=== PATIENT | female | born 1990 | race African-American/Black ===

== ENCOUNTER 2020-05-08 08:56 | Inpatient (IN) | payer BC, OTHER ==
[2020-05-08] MEDS ORDERED: PANTOPRAZOLE SODIUM 40 MG VIAL IVPUSH ONE (09:32)
[2020-05-08] MEDS ORDERED: ONDANSETRON 4 MG/2 ML VIAL IVPUSH ONE (09:32)
[2020-05-08] MEDS ORDERED: MAG HYDROX/AL HYDROX/SIMETH 30 ML UNIT-DOSE CUP PO ONE (09:32)
--- NOTE | 2020-05-08 09:36 | PDOC ---
History of Present Illness - General Chief Complaint: Pain Stated Complaint: LWR ABD PAIN Time Seen by Provider: 05/08/20 09:18 History Source: Patient Exam Limitations: No Limitations - History of Present Illness Initial Comments: 05/08/20 09:33 29-year-old female no past medical history surgical history of gastric sleeve 3 years ago presented to the ED with 2 days of lower abdominal pain. Patient states that the pain is associated with nausea without vomiting. Patient states that she feels the pain is gassy diffuse and intermittent. Patient also is complaining of constipation but was able to have a bowel movement after using a laxative. Pt otherwise denies: fevers, chills, syncope, lightheadedness, dizziness, headaches, neck pain, chest pain, shortness of breath, palpitations, back pain, vomiting, diarrhea. Past History - Medical History Allergies/Adverse Reactions: Allergies Allergy/AdvReac Type Severity Reaction Status Date / Time codeine Allergy Verified 05/08/20 09:08 Home Medications: Ambulatory Orders NK [No Known Home Medication] 05/08/20 - Reproductive History Is Patient Now?: No - Psycho-Social/Smoking History Smoking History: Never smoked - Substance Abuse Hx (Audit-C & DAST Scrn) How often the patient has a drink containing alcohol: Never Score: In Men: 4 or > Positive; In Women: 3 or > Positive: 0 Screen Result (Pos requires Nsg. Audit-10AR): Negative *Physical Exam - Vital Signs Last Vital Signs Temp Pulse Resp BP Pulse Ox 98.5 F 85 15 101/49 L 100 05/08/20 09:08 05/08/20 09:08 05/08/20 09:08 05/08/20 09:08 05/08/20 09:08 - Physical Exam 05/08/20 09:34 Gen: AAOx 3, no acute distress, comfortable, no signs of respiratory distress HENT: atraumatic, normocephalic with no laceration or contusion. Nasal mucosa without erythema. Oropharynx without erythema or exudates. Mucous membranes moist. EYES: PERRL, EOM intact, conjunctiva pink NECK: supple; trachea midline; no JVD, no lymphadenopathy, or thyromegaly CV: RRR no murmurs, gallops, or rubs. CHEST: CTA b/l no wheezing, rales or rhonchi ABD: +BS/ND. mildly TTP throughout; soft, no rebound, no guarding EXTREMITY: no cyanosis or erythema. 2+ dorsalis pedis, posterior tibial, and radial pulse. No pedal edema; no calf swelling or tenderness SKIN: no rash, warm and dry, no diaphoresis HEME: no purpura or ecchymosis NEURO: normal speech, CN II-XII intact, sensation intact, normal gait, no cerebellar deficits MS: 5/5 strength in all extremities, FROM intact in all extremities. ED Treatment Course - LABORATORY CBC & Chemistry Diagram: 05/08/20 10:08 05/08/20 10:08 Medical Decision Making - Medical Decision Making 05/08/20 09:35 29-year-old female diffuse lower abdominal pain Vital signs stable Will obtain labs and give Maalox Zofran and pantoprazole Will reassess based on results Patient's labs significant for hemoglobin of 7.1 and hematocrit of 23.4 will transfuse 2 units as well as obtain ferritin TIBC B6 B12 and folate levels. Rest of labs noncontributory UA negative Patient complaining of persistent abdominal pain will order 2 mg of morphine, patient states that her reaction to codeine previously was only mild warmth and itching which is a normal side effect of the medicine hence morphine should be tolerated Patient to be admitted to medicine for further management and care Pt admitted to medicine pending rest of labs, EKG and Ct abdomen and pelvis. Discharge - Discharge Information Problems reviewed: Yes Clinical Impression/Diagnosis: Anemia Qualifiers: Anemia type: unspecified type Qualified Code(s): D64.9 - Anemia, unspecified Abdominal pain Qualifiers: Abdominal location: generalized Qualified Code(s): R10.84 - Generalized abdominal pain Condition: Stable - Admission Yes - Follow up/Referral - Patient Discharge Instructions - Post Discharge Activity
[2020-05-08] MEDS ORDERED: PANTOPRAZOLE SODIUM 40 MG/100 ML BAG IVPB ONE (10:01)
[2020-05-08] MEDS ORDERED: MAG HYDROX/AL HYDROX/SIMETH 30 ML UNIT-DOSE CUP ONE (10:02)
[2020-05-08 10:48] LABS: BASO % 0.6 % (0-2.0); EOS % 0.7 % (0-4.5); HEMATOCRIT 23.4 % (32.4-45.2); HEMOGLOBIN 7.1 GM/dL (10.7-15.3); MCHC 30.5 g/dl (32.0-36.0); MEAN CELL VOLUME 63.6 fl (80-96); MONO % 6.3 % (3.8-10.2); NEUT % 63.4 % (42.8-82.8); PLATELET COUNT 316 K/MM3 (134-434); RBC 3.67 M/mm3 (3.60-5.2); RDW 17.5 % (11.6-15.6); WHITE BLOOD COUNT 4.1 K/mm3 (4.0-10.0)
[2020-05-08 10:51] LABS: INR 1.17 (0.83-1.09); PROTHROMBIN TIME (PATIENT) 13.8 SEC (9.7-13.0)
[2020-05-08 10:57] LABS: MCH 19.4 pg (25.7-33.7)
[2020-05-08 11:12] LABS: ALBUMIN 3.3 g/dl (3.4-5.0); ALK PHOS 54 U/L (45-117); ANION GAP 4 MMOL/L (8-16); BILIRUBIN,TOTAL 0.2 mg/dL (0.2-1); BLOOD UREA NITROGEN 5.5 mg/dL (7-18); CALCIUM 8.5 mg/dL (8.5-10.1); CHLORIDE 108 mmol/L (98-107); CO2 29 mmol/L (21-32); CREATININE 0.7 mg/dL (0.55-1.3); GLUCOSE,RANDOM 79 mg/dL (74-106); LIPASE 94 U/L (73-393); POTASSIUM 4.7 mmol/L (3.5-5.1); SGOT/AST 20 U/L (15-37); SGPT/ALT 19 U/L (13-61); SODIUM 140 mmol/L (136-145); TOT PROT 6.7 g/dl (6.4-8.2)
[2020-05-08] MEDS ORDERED: morphine CARPU-JECT 2 MG/1 ML DISP.SYRIN IVPUSH ONE (11:28)
[2020-05-08 11:55] LABS: URINE APPEARANCE CLEAR; URINE BILIRUBIN NEGATIVE (NEGATIVE); URINE COLOR YELLOW; URINE GLUCOSE (UA) NEGATIVE (NEGATIVE); URINE KETONE NEGATIVE (NEGATIVE); URINE LEUK ESTERASE NEGATIVE (NEGATIVE); URINE NITRITE NEGATIVE (NEGATIVE); URINE PROTEIN NEGATIVE (NEGATIVE); URINE UROBILINOGEN 0.2 mg/dL (0.2-1.0)
[2020-05-08] MEDS ORDERED: MORPHINE SULFATE 2 MG/ML VIAL ONE (12:22)
--- NOTE | 2020-05-08 12:25 | HP ---
CHIEF COMPLAINT: abdominal pain PCP: HISTORY OF PRESENT ILLNESS: Pt is a 29 y/o female with hx of anemia (not on iron supplementation) and gastric sleeve (3 years ago) who presents with 2 days of lower abdominal pain and constipation. She describes the pain as gassy, and it was relieved after taking Miralax and having a bowel movement. She denies fatigue, fever, chills, chest pain, palpitations, shortness of breath, nausea, vomiting, or diarrhea. During routine lab draw, her Hb was found to be 7.1. Her last LMP was 2 weeks ago and was normal. ER course was notable for: (1) Hb 7.1 (2) Maalox, pantoprazole (3) CT abdomen PAST MEDICAL HISTORY: anemia PAST SURGICAL HISTORY: gastric sleeve Social History: Smoking: denies Alcohol: denies Drugs: denies Allergies codeine Allergy (Verified 05/08/20 09:08) HOME MEDICATIONS: Home Medications Medication Instructions Recorded NK [No Known Home Medication] 05/08/20 REVIEW OF SYSTEMS see HPI PHYSICAL EXAMINATION Vital Signs - 24 hr 05/08/20 09:08 Temperature 98.5 F Pulse Rate 85 Respiratory 15 Rate Blood Pressure 101/49 L O2 Sat by Pulse 100 Oximetry (%) GENERAL: A&Ox3, in no acute distress. HEAD: Normal with no signs of trauma. EYES: PERRL, EOMI, pale conjunctiva. EARS, NOSE, THROAT: Ears normal, nares patent, moist mucous membranes. NECK: Normal range of motion. LUNGS: CTAB, no wheezes or crackles. HEART: RRR, no murmur. ABDOMEN: Soft, not distended, normoactive bowel sounds, guarding LLQ. MUSCULOSKELETAL: Normal range of motion at all joints. UPPER EXTREMITIES: Warm, well-perfused. No peripheral edema. LOWER EXTREMITIES: Warm, well-perfused. No peripheral edema. NEUROLOGICAL: Cranial nerves II-XII grossly intact. Normal speech. PSYCHIATRIC: Cooperative. Good eye contact. Appropriate mood and affect. SKIN: Warm, dry, normal turgor. RECTAL: External hemorrhoid @ 11 o' clock position, no internal hemorrhoids or masses noted, small amount light brown stool on glove Laboratory Results - last 24 hr 05/08/20 05/08/20 05/08/20 10:08 10:08 10:08 WBC 4.1 RBC 3.67 Hgb 7.1 L Hct 23.4 L MCV 63.6 L MCH 19.4 L MCHC 30.5 L RDW 17.5 H Plt Count 316 MPV 9.0 Absolute Neuts (auto) 2.6 Neutrophils % 63.4 Lymphocytes % 29.0 Monocytes % 6.3 Eosinophils % 0.7 Basophils % 0.6 Nucleated RBC % 0 PT with INR 13.80 H INR 1.17 H Sodium 140 Potassium 4.7 Chloride 108 H Carbon Dioxide 29 Anion Gap 4 L BUN 5.5 L Creatinine 0.7 Est GFR (CKD-EPI)AfAm 133.81 Est GFR (CKD-EPI)NonAf 115.45 Random Glucose 79 Calcium 8.5 Total Bilirubin 0.2 AST 20 ALT 19 Alkaline Phosphatase 54 Total Protein 6.7 Albumin 3.3 L Lipase 94 Beta HCG, Quant < 1.0 Urine Color Urine Appearance Urine pH Ur Specific [place] Urine Protein Urine Glucose (UA) Urine Ketones Urine Blood Urine Nitrite Urine Bilirubin Urine Urobilinogen Ur Leukocyte Esterase Crossmatch 05/08/20 05/08/20 10:55 11:33 WBC RBC Hgb Hct MCV MCH MCHC RDW Plt Count MPV Absolute Neuts (auto) Neutrophils % Lymphocytes % Monocytes % Eosinophils % Basophils % Nucleated RBC % PT with INR INR Sodium Potassium Chloride Carbon Dioxide Anion Gap BUN Creatinine Est GFR (CKD-EPI)AfAm Est GFR (CKD-EPI)NonAf Random Glucose Calcium Total Bilirubin AST ALT Alkaline Phosphatase Total Protein Albumin Lipase Beta HCG, Quant Urine Color Yellow Urine Appearance Clear Urine pH 8.0 Ur Specific [place] 1.012 Urine Protein Negative Urine Glucose (UA) Negative Urine Ketones Negative Urine Blood Negative Urine Nitrite Negative Urine Bilirubin Negative Urine Urobilinogen 0.2 Ur Leukocyte Esterase Negative Crossmatch See Detail CT abdomen A 4.4 x 4 cm right adnexal dermoid cyst is noted. 3 x 2 cm involuting left ovarian follicle/cyst. A 2.3 x 1.7 cm fluid structure is noted within the right paramedian aspect of the upper abdomen adjacent to the inferior border of the pancreatic head - representing a possible exophytic pancreatic cyst versus incidental visualization of a fluid-filled bowel loop. Correlation with nonemergent contrast enhanced MRI or follow-up CT with intravenous and oral contrast is suggested. ASSESSMENT/PLAN: Pt is a 29 y/o female with hx of anemia (not on iron supplementation) and gastric sleeve (3 years ago) who presents with 2 days of lower abdominal pain and constipation. She was found to have a Hb of 7.1. She is being admitted for microcytic anemia. 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 - New Patient This patient is new to me today: Yes Date on this admission: 05/08/20 - Critical Care Critical Care patient: No ATTENDING PHYSICIAN STATEMENT I saw and evaluated the patient. I reviewed the resident's note and discussed the case with the resident. I agree with the resident's findings and plan as documented. SUBJECTIVE: OBJECTIVE: ASSESSMENT AND PLAN:
--- NOTE | 2020-05-08 14:36 | CONSULT ---
Consultation: REQUESTING PROVIDER: Dr. Frank CONSULT REQUEST: We have been asked to medically evaluate this patient for anemia. HISTORY OF PRESENT ILLNESS: Patient is a 29 year old female with past medical history of iron deficiency anemia and s/p gastric sleeve, presented to the ED due to abdominal pain for 3 days. Patient reported LLQ pain, constant, sharp, with no aggravating or alleviating symptoms. At the ED, abdominal CT scan was done which revealed right adnexal dermoid cyst, involuting left ovarian follicle/cyst. CBC revealed Hgb of 7.1, MCV 63. Patient denies any fevers, chills, headache, dizziness, chest pain, shortness of breath, nausea, vomiting, diarrhea, urinary symptoms, bloody stoo ls. LMP Apr 24-, uses 2-3 ppd, no dysmenorrhea. No recent illness or sick contacts. We were consulted for further evaluation of anemia. Patient has medical records with her, latest blood work done in may 2019, revealed H/H 9.3/78.3, Iron 34, TSAT 11%. Patient was started on PO iron but could not tolerate the pill. PMHx: anemia PSHx:gastric sleeve SHx: denies smoking,drinking, illicit drug use Allergies: codeine FHx: no hx of blood disorders or cancer in the family REVIEW OF SYSTEMS: CONSTITUTIONAL: Absent: fever, chills, diaphoresis, generalized weakness, malaise, loss of appetite, weight change HEENT: Absent: rhinorrhea, nasal congestion, throat pain, throat swelling, difficulty swallowing, mouth swelling, ear pain, eye pain, visual changes CARDIOVASCULAR: Absent: chest pain, syncope, palpitations, irregular heart rate, lightheadedness, peripheral edema RESPIRATORY: Absent: cough, shortness of breath, dyspnea with exertion, orthopnea, wheezing, stridor, hemoptysis GASTROINTESTINAL:abdominal pain Absent: abdominal distension, nausea, vomiting, diarrhea, constipation, melena, hematochezia GENITOURINARY: Absent: dysuria, frequency, urgency, hesitancy, hematuria, flank pain, genital pain MUSCULOSKELETAL: Absent: myalgia, arthralgia, joint swelling, back pain, neck pain SKIN: Absent: rash, itching, pallor HEMATOLOGIC/IMMUNOLOGIC: Absent: easy bleeding, easy bruising, lymphadenopathy, frequent infections ENDOCRINE: Absent: unexplained weight gain, unexplained weight loss, heat intolerance, cold intolerance NEUROLOGIC: Absent: headache, focal weakness or paresthesias, dizziness, unsteady gait, seizure, mental status changes, bladder or bowel incontinence PSYCHIATRIC: Absent: anxiety, depression, suicidal or homicidal ideation, hallucinations. PHYSICAL EXAMINATION Vital Signs - 24 hr 05/08/20 05/08/20 09:08 13:06 Temperature 98.5 F 98.6 F Pulse Rate 85 Pulse Rate [ 72 Left] Respiratory 15 Rate Blood Pressure 101/49 L Blood Pressure 95/46 L [Left] O2 Sat by Pulse 100 99 Oximetry (%) GENERAL: Awake, alert, and fully oriented, in no acute distress. HEAD: Normal with no signs of trauma. EYES: PERRLA, EOMI, sclera anicteric, conjunctiva clear. EARS, NOSE, THROAT: Moist mucous membranes. NECK: Normal range of motion, supple LUNGS: Breath sounds equal, clear to auscultation bilaterally. HEART: Regular rate and rhythm, normal S1 and S2 BREAST: symmetrical, no skin changes, no nipple discharge, no masses, no axillary lymphadenopathy ABDOMEN: Soft, +LLQ tenderness, not distended, normoactive bowel sounds. LOWER EXTREMITIES: 2+ pulses, warm, well-perfused. No peripheral edema. NEUROLOGICAL: Cranial nerves II-XII intact. Normal speech. Normal gait. PSYCHIATRIC: Cooperative. Good eye contact. Appropriate mood and affect. SKIN: Warm, dry, normal turgor Laboratory Results - last 24 hr 05/08/20 05/08/20 05/08/20 10:08 10:08 10:08 WBC 4.1 RBC 3.67 Hgb 7.1 L Hct 23.4 L MCV 63.6 L MCH 19.4 L MCHC 30.5 L RDW 17.5 H Plt Count 316 MPV 9.0 Absolute Neuts (auto) 2.6 Neutrophils % 63.4 Lymphocytes % 29.0 Monocytes % 6.3 Eosinophils % 0.7 Basophils % 0.6 Nucleated RBC % 0 PT with INR 13.80 H INR 1.17 H Sodium 140 Potassium 4.7 Chloride 108 H Carbon Dioxide 29 Anion Gap 4 L BUN 5.5 L Creatinine 0.7 Est GFR (CKD-EPI)AfAm 133.81 Est GFR (CKD-EPI)NonAf 115.45 Random Glucose 79 Calcium 8.5 Total Bilirubin 0.2 AST 20 ALT 19 Alkaline Phosphatase 54 Total Protein 6.7 Albumin 3.3 L Lipase 94 Beta HCG, Quant < 1.0 Urine Color Urine Appearance Urine pH Ur Specific [place] Urine Protein Urine Glucose (UA) Urine Ketones Urine Blood Urine Nitrite Urine Bilirubin Urine Urobilinogen Ur Leukocyte Esterase Anti-A Titer Blood Type Antibody Screen Crossmatch 05/08/20 05/08/20 05/08/20 10:55 11:30 11:33 WBC RBC Hgb Hct MCV MCH MCHC RDW Plt Count MPV Absolute Neuts (auto) Neutrophils % Lymphocytes % Monocytes % Eosinophils % Basophils % Nucleated RBC % PT with INR INR Sodium Potassium Chloride Carbon Dioxide Anion Gap BUN Creatinine Est GFR (CKD-EPI)AfAm Est GFR (CKD-EPI)NonAf Random Glucose Calcium Total Bilirubin AST ALT Alkaline Phosphatase Total Protein Albumin Lipase Beta HCG, Quant Urine Color Yellow Urine Appearance Clear Urine pH 8.0 Ur Specific [place] 1.012 Urine Protein Negative Urine Glucose (UA) Negative Urine Ketones Negative Urine Blood Negative Urine Nitrite Negative Urine Bilirubin Negative Urine Urobilinogen 0.2 Ur Leukocyte Esterase Negative Anti-A Titer Cancelled Blood Type A POSITIVE Cancelled Antibody Screen Cancelled Crossmatch See Detail 05/08/20 12:25 WBC RBC Hgb Hct MCV MCH MCHC RDW Plt Count MPV Absolute Neuts (auto) Neutrophils % Lymphocytes % Monocytes % Eosinophils % Basophils % Nucleated RBC % PT with INR INR Sodium Potassium Chloride Carbon Dioxide Anion Gap BUN Creatinine Est GFR (CKD-EPI)AfAm Est GFR (CKD-EPI)NonAf Random Glucose Calcium Total Bilirubin AST ALT Alkaline Phosphatase Total Protein Albumin Lipase Beta HCG, Quant Urine Color Urine Appearance Urine pH Ur Specific [place] Urine Protein Urine Glucose (UA) Urine Ketones Urine Blood Urine Nitrite Urine Bilirubin Urine Urobilinogen Ur Leukocyte Esterase Anti-A Titer Blood Type A POSITIVE Antibody Screen Negative Crossmatch See Detail Active Medications Generic Name Dose Route Start Last Admin Trade Name Freq PRN Reason Stop Dose Admin Sodium Chloride 1,000 mls @ 100 mls/hr 05/08/20 13:15 Normal Saline - IV ASDIR JAYLA Pantoprazole Sodium 40 mg 05/08/20 22:00 Protonix - PO BID JAYLA ASSESSMENT/PLAN: Patient is a 29 year old female with past medical history of iron deficiency anemia and s/p gastric sleeve, presented to the ED due to abdominal pain for 3 days. We have been asked to medically evaluate this patient for anemia. #Microcytic anemia -likely iron deficiency anemia possibly 2/2 gastric sleeve (decreased iron absorption), r/o occult gi bleed -iron studies pending -Hgb 7.1, MCV 63.6 on admission -retic count, LDH, stool occult -would benefit from IV iron 200mg Q48h x 5 doses -hgb electrophoresis pending -monitor cbc, transfuse prn to keep hgb >7 Dispo: We will continue to follow the patient. Thank you for this consultative opportunity. Visit type - Emergency Visit Emergency Visit: Yes ED Registration Date: 05/08/20 Care time: The patient presented to the Emergency Department on the above date and was hospitalized for further evaluation of their emergent condition. - New Patient This patient is new to me today: Yes Date on this admission: 05/08/20 - Critical Care Critical Care patient: No ATTENDING PHYSICIAN STATEMENT I saw and evaluated the patient. I reviewed the resident's note and discussed the case with the resident. I agree with the resident's findings and plan as documented. SUBJECTIVE: OBJECTIVE: ASSESSMENT AND PLAN:
[2020-05-08 14:39] VITALS: BMI 28.2
--- NOTE | 2020-05-08 15:04 | EKG ---
Test Reason : Blood Pressure : / mmHG Vent. Rate : 052 BPM Atrial Rate : 052 BPM P-R Int : 124 ms QRS Dur : 076 ms QT Int : 442 ms P-R-T Axes : 060 059 053 degrees QTc Int : 411 ms SINUS BRADYCARDIA OTHERWISE NORMAL ECG NO PREVIOUS ECGS AVAILABLE Confirmed by Dylan Gastelum MD ([id number]) on 05/08/2020 3:04:25 PM Referred By: Confirmed By:Dylan Gastelum MD
[2020-05-08] MEDS ORDERED: IRON SUCROSE INJECTION 200 MG in SODIUM CHLORIDE 90 ML IVPB ONE (15:30)
[2020-05-08] MEDS: SODIUM CHLORIDE 1,000 ML IV SCH (15:57)
--- NOTE | 2020-05-08 16:06 | CON.GI ---
Consult - History of Present Illness History of Present Illness: Mrs. Wolff is a 29 year old woman with a past medical history of anemia & gastric sleeve in 2017 who is admitted with a two day history of lower abdominal pain and constipation. Patient states she was constipated then took a laxative at which time she developed lower abdominal crampty pain with associated bowel movement. She denies previous episodes in the past/ melena / brbr / nausea/ vomiting/ hemetemesis. Her last egd was done prior to her gastric surgery. She was found to have anemia - HG 7.1. 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: Alzheimer's, CVA, Dementia, Migraine, Multiple Sclerosis, Peripheral Neuropathy, Parkinson's, Seizure, Syncope, TIA, Vertigo, Other Cardio/Vascular: No: AFIB, Aneurysm, Aortic Insufficiency, Aortic Stenosis, CAD, CHF, Deep Vein Thrombosis, HTN, Hyperlipdemia, MS, Mitral Insufficiency, Mitral Stenosis, Murmur, Pulmonary Hypertension, Other Pulmonary: No: Asthma, Bronchitis, Cancer, COPD, O2 Dependent, Pneumonia, Previously Intubated, Pulmonary Embolus, Pulmonary Fibrosis, Sleep Apnea, Other Gastrointestinal: No: Ascites, Cancer, Constipation, Crohn's Disease, Diverticulitis, Diverticulosis, Esophageal Varices, Gastritis, GERD, GI Bleed, Hemorrhoids, Hiatal Hernia, Inflamatory Bowel Disease, Irritable Bowel Disease, Pancreatitis, Peptic Ulcer Disease, Ulcerative Colitis, Other Hepatobiliary: No: Cirrhosis, Cholelithiasis, Cholecystitis, Choledocholithiasis, Hepatitis A, Hepatitis B, Hepatitis C, Other Renal/: No: Renal Failure, Renal Inusuff, BPH, Cancer, Hematuria, Hemodialysis, Neurogenic Bladder, Renal Calculi, UTI, Other Reproductive: No: Ectopic , Endometriosis, Fibroids, PID, Polycystic Ovary Syndrome, Postmenopausal, Other ...LMP: 04/24/20 ...LMP Comment: normal ...: No Heme/Onc: Yes: Anemia Infectious Disease: No: AIDS, C-Diff, Herpes Zoster, HIV, MRSA, STD's, Tuber culosis, VREF, Other Psych: No: Addictions, Anxiety, Bipolar, Depression, Panic, Psychosis, Schizophrenia, Other Musculoskeletal: No: Bursitis, Chronic low back pain, Hemiparesis, Hemiplegia, Osteoarthritis, Paraplegia, Other Rheumatology: No: Fibromyalgia, Gout, Lupus, Rheumatoid Arthritis, Sarcoidosis, Vasculitis, Other ENT: No: Allergic Rhinitis, Sinusitis, Other Endocrine: No: [place]'s Disease, Monette's Disease, Diabetes Insipidus, Diabetes Mellitus, Hyperparathyroidism, Hyperthyroidism, Hypothyroidism, Osteopenia, SIADH, Other Dermatology: No: Basal Cell, Cellulitis, Eczema, Melanoma, Psoriasis, Squamous Cell, Other - Past Surgical History Additional Surgical History: gastric sleeve - Alcohol/Substance Use Hx Alcohol Use: No History of Substance Use: denies: None, Cocaine, Heroin, Marijuana, Prescription, Tranquilizers - Smoking History Smoking history: Never smoked Home Medications - Allergies Allergies/Adverse Reactions: Allergies Allergy/AdvReac Type Severity Reaction Status Date / Time codeine Allergy Verified 05/08/20 09:08 - Home Medications Home Medications: Ambulatory Orders NK [No Known Home Medication] 05/08/20 Family Medical History Family History: Unremarkable Review of Systems Unable to obtain ROS, reason: as per hpi Physical Exam-GI Vital Signs: Vital Signs Temperature 98.2 F 05/08/20 14:16 Pulse Rate 61 05/08/20 14:16 Respiratory Rate 18 05/08/20 14:16 Blood Pressure 102/62 05/08/20 14:16 O2 Sat by Pulse Oximetry (%) 99 05/08/20 14:16 Constitutional: Yes: Well Nourished, No Distress, Calm Cardiovascular: Yes: WNL, Regular Rate and Rhythm Respiratory: Yes: WNL, Regular, CTA Bilaterally Gastrointestinal Inspection: Yes: WNL ...Auscultate: Yes: Normoactive Bowel Sounds, Other (tender left lower quadrant to deep palpation without rebound or guarding) Edema: No Labs: CBC, BMP 05/08/20 10:08 05/08/20 10:08 INR, PTT INR 1.17 (0.83-1.09) H 05/08/20 10:08 Imaging - Results Cat Scan: Report Reviewed, Image Reviewed Problem List - Problems (1) Abdominal pain Assessment/Plan: Impression: 1. Abdominal pain most likely secondary to underlying constipation / laxative use. Also included in the differential diagnosis is upper trimmer etiology ( cyst noted on imaging ) diverticular disease. 2. Anemia r/o gastrointestinal blood loss particularly considering she had gastric surgery and may have ulcers. 3. Pancreatic cyst? REC: - CT scan with contrast ordered to further evaluate the abdominal findings on the non- contrast study - advance diet as tolerated - stool for occult blood - monitor h/h q12 - ppi therapy - she will need an egd late in the week pending the above results. Code(s): R10.9 - UNSPECIFIED ABDOMINAL PAIN Qualifiers: Abdominal location: generalized Qualified Code(s): R10.84 - Generalized abdominal pain (2) Anemia Code(s): D64.9 - ANEMIA, UNSPECIFIED Qualifiers: Anemia type: unspecified type Qualified Code(s): D64.9 - Anemia, unspecified
[2020-05-08 17:55] LABS: IRON SERUM 14 ug/dL (50-175); TOTAL IRON BINDING CAPACITY 441 ug/dL (250-450)
--- NOTE | 2020-05-08 18:49 | CONSULT ---
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- History of 2 NSVDs w/o complications at [facility] No h/o abnl paps No h/o STIs Regular cycles No IMB - History Source History Provided By: Patient Limitations to Obtaining History: No Limitations - Past Medical History 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: No: Alzheimer's, CVA, Dementia, Migraine, Multiple Sclerosis, Peripheral Neuropathy, Parkinson's, Seizure, Syncope, TIA, Vertigo, Other Cardio/Vascular: No: AFIB, Aneurysm, Aortic Insufficiency, Aortic Stenosis, CAD, CHF, Deep Vein Thrombosis, HTN, Hyperlipdemia, IN, Mitral Insufficiency, Mitral Stenosis, Murmur, Pulmonary Hypertension, Other Pulmonary: No: Asthma, Bronchitis, Cancer, COPD, O2 Dependent, Pneumonia, Previously Intubated, Pulmonary Embolus, Pulmonary Fibrosis, Sleep Apnea, Other Gastrointestinal: No: Ascites, Cancer, Constipation, Crohn's Disease, Diverticul itis, Diverticulosis, Esophageal Varices, Gastritis, GERD, GI Bleed, Hemorrhoids, Hiatal Hernia, Inflamatory Bowel Disease, Irritable Bowel Disease, Pancreatitis, Peptic Ulcer Disease, Ulcerative Colitis, Other Hepatobiliary: No: Cirrhosis, Cholelithiasis, Cholecystitis, Cho ledocholithiasis, Hepatitis A, Hepatitis B, Hepatitis C, Other Renal/: No: Renal Failure, Renal Inusuff, BPH, Cancer, Hematuria, Hemodialysis, Neurogenic Bladder, Renal Calculi, UTI, Other ...LMP: 04/24/20 ...LMP Comment: normal ...: No ...: 2 ...Para: 2 Heme/Onc: Yes: Anemia Infectious Disease: No: AIDS, C-Diff, Herpes Zoster, HIV, MRSA, STD's, Tuberculosis, VREF, Other Psych: No: Addictions, Anxiety, Bipolar, Depression, Panic, Psychosis, Schizophrenia, Other Musculoskeletal: No: Bursitis, Chronic low back pain, Hemiparesis, Hemiplegia, Osteoarthritis, Paraplegia, Other Rheumatology: No: Fibromyalgia, Gout, Lupus, Rheumatoid Arthritis, Sarcoidosis, Vasculitis, Other ENT: No: Allergic Rhinitis, Sinusitis, Other Endocrine: No: Lee's Disease, Jethro's Disease, Diabetes Insipidus, Diabetes Mellitus, Hyperparathyroidism, Hyperthyroidism, Hypothyroidism, Osteopenia, SIADH, Other Dermatology: No: Basal Cell, Cellulitis, Eczema, Melanoma, Psoriasis, Squamous Cell, Other - Past Surgical History Additional Surgical History: gastric sleeve, R ovarian cystectomy - Alcohol/Substance Use Hx Alcohol Use: No History of Substance Use: denies: None, Cocaine, Heroin, Marijuana, Prescription, Tranquilizers - Smoking History Smoking history: Never smoked - Social History Usual Living Arrangement: With Spouse History of Recent Travel: No Home Medications - Allergies Allergies/Adverse Reactions: Allergies Allergy/AdvReac Type Severity Reaction Status Date / Time codeine Allergy Verified 05/08/20 09:08 - Home Medications Home Medications: Ambulatory Orders NK [No Known Home Medication] 05/08/20 Family Medical History Family History: Unremarkable Review of Systems - Review of Systems Constitutional: reports: No Symptoms Gastrointestinal: reports: Abdominal Pain, Constipation, Nausea Physical Exam Vital Signs: Vital Signs Temperature 98.2 F 05/08/20 17:00 Pulse Rate 65 05/08/20 17:00 Respiratory Rate 18 05/08/20 17:00 Blood Pressure 90/54 L 05/08/20 17:00 O2 Sat by Pulse Oximetry (%) 100 05/08/20 17:00 Constitutional: Yes: Well Nourished, No Distress, Calm Gastrointestinal: Yes: Soft, Abdomen, Obese Labs: CBC, BMP 05/08/20 10:08 05/08/20 10:08 Imaging - Results Cat Scan: Report Reviewed Assessment/Plan 29yo F with incidental 4cm possible dermoid cyst found on imaging, history of dermoid cysts Appreciate care per medicine and GI team Dermoid cyst not likely contributing to her clinical picture- noted on R side and patient's pain is L sided; patient may follow up as an outpatient where a sonogram can be done in 4-6 weeks for reassessment of the ovarian cyst. The involuting/resolving contralateral cyst note on CT scan, needs no further evaluation. All questions answered. Aaron Dumont MD
[2020-05-08] MEDS: PANTOPRAZOLE 40 MG TABLET PO SCH (22:10)
[2020-05-08] MEDS: ACETAMINOPHEN 1000 MG/100 ML VIAL (NON FORMULARY) IVPB PRN (22:12)
--- NOTE | 2020-05-08 22:53 | PN ---
Teaching Attending Note Name of Resident: Georgina Bhandari ATTENDING PHYSICIAN STATEMENT I saw and evaluated the patient. I reviewed the resident's note and discussed the case with the resident. I agree with the resident's findings and plan as documented. ASSESSMENT AND PLAN: Patient is a 29 year old female with past medical history of iron deficiency anemia and s/p gastric sleeve, presented to the ED due to abdominal pain for 3 days. We have been asked to medically evaluate this patient for anemia. 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
[2020-05-09] MEDS: ACETAMINOPHEN 1000 MG/100 ML VIAL (NON FORMULARY) IVPB PRN (06:53)
[2020-05-09 08:18] LABS: BASO % 0.5 % (0-2.0); EOS % 1.3 % (0-4.5); HEMATOCRIT 19.7 % (32.4-45.2); LYMPH % 38.7 % (8-40); MCHC 30.6 g/dl (32.0-36.0); MEAN CELL VOLUME 63.1 fl (80-96); MEAN PLT VOLUME 9.2 fl (7.5-11.1); MONO % 7.4 % (3.8-10.2); NEUT % 52.1 % (42.8-82.8); PLATELET COUNT 258 K/MM3 (134-434); RBC 3.12 M/mm3 (3.60-5.2); RDW 17.6 % (11.6-15.6); WHITE BLOOD COUNT 3.9 K/mm3 (4.0-10.0)
[2020-05-09 08:25] LABS: CHLORIDE 110 mmol/L (98-107); SODIUM 140 mmol/L (136-145)
[2020-05-09 08:28] LABS: MCH 19.3 pg (25.7-33.7)
[2020-05-09 08:40] LABS: ALBUMIN 2.7 g/dl (3.4-5.0); ALK PHOS 50 U/L (45-117); ANION GAP 4 MMOL/L (8-16); BILIRUBIN,TOTAL < 0.1 mg/dL (0.2-1); BLOOD UREA NITROGEN 6.6 mg/dL (7-18); CALCIUM 8.2 mg/dL (8.5-10.1); CO2 27 mmol/L (21-32); CREATININE 0.6 mg/dL (0.55-1.3); GLUCOSE,RANDOM 76 mg/dL (74-106); MAGNESIUM 2.2 mg/dL (1.8-2.4); SGOT/AST 18 U/L (15-37); SGPT/ALT 21 U/L (13-61); TOT PROT 5.6 g/dl (6.4-8.2)
[2020-05-09] MEDS ORDERED: IRON SUCROSE INJECTION 200 MG in SODIUM CHLORIDE 90 ML IVPB ONE (10:00)
[2020-05-09] MEDS: PANTOPRAZOLE 40 MG TABLET PO SCH ×2 (10:53→22:01)
--- NOTE | 2020-05-09 12:25 | PN ---
Teaching Attending Note Name of Resident: Magalys Jacques ATTENDING PHYSICIAN STATEMENT I saw and evaluated the patient. I reviewed the resident's note and discussed the case with the resident. I agree with the resident's findings and plan as documented. SUBJECTIVE: Patient seen and examined at bedside, admitted for non-specific abdominal pain found to have severe microcytic anemia, VSS. OBJECTIVE: GA comfortable, AAox3, NAD HEENT nC/AT, no scleral icterus, neck supple, MMM Chest CTAB, no crackles CVS s1, S2+, RRR Abd Soft, mild lower abdominal tenderness, ND, BS+, no guarding Ext no LE edema, no calf tenderness Vital Signs (72 hours) 05/08/20 05/08/20 05/08/20 09:08 13:06 14:16 Temperature 98.5 F 98.6 F 98.2 F Pulse Rate 85 61 Pulse Rate [ 72 Left] Respiratory 15 18 Rate Blood Pressure 101/49 L 102/62 Blood Pressure 95/46 L [Left] O2 Sat by Pulse 100 99 99 Oximetry (%) 05/08/20 05/08/20 05/08/20 17:00 21:00 22:01 Temperature 98.2 F 98.5 F Pulse Rate 65 71 Pulse Rate [ Left] Respiratory 18 20 20 Rate Blood Pressure 90/54 L 95/50 L Blood Pressure [Left] O2 Sat by Pulse 100 99 99 Oximetry (%) 05/09/20 05:49 Temperature 98.1 F Pulse Rate 74 Pulse Rate [ Left] Respiratory 20 Rate Blood Pressure 108/65 Blood Pressure [Left] O2 Sat by Pulse 100 Oximetry (%) Laboratory Results - last 24 hr 05/08/20 05/08/20 05/08/20 10:08 10:08 11:25 WBC RBC Hgb Hct MCV MCH MCHC RDW Plt Count MPV Absolute Neuts (auto) Neutrophils % Lymphocytes % Monocytes % Eosinophils % Basophils % Nucleated RBC % Retic Count Sodium 140 Potassium 4.7 Chloride 108 H Carbon Dioxide 29 Anion Gap 4 L BUN 5.5 L Creatinine 0.7 Est GFR (CKD-EPI)AfAm 133.81 Est GFR (CKD-EPI)NonAf 115.45 Random Glucose 79 Calcium 8.5 Magnesium Iron 14 L TIBC 441 440 Iron Saturation 3 L Unsaturated IBC 427 H Ferritin 7.7 L Total Bilirubin 0.2 AST 20 ALT 19 Alkaline Phosphatase 54 LD Total 336 H Total Protein 6.7 Albumin 3.3 L Lipase 94 Vitamin B12 354 Serum Folate 8 Beta HCG, Quant < 1.0 Stool Occult Blood COVID-19 (ROBBIE) Not detected Anti-A Titer Blood Type Antibody Screen Crossmatch 05/08/20 05/08/20 05/08/20 11:30 11:33 12:25 WBC RBC Hgb Hct MCV MCH MCHC RDW Plt Count MPV Absolute Neuts (auto) Neutrophils % Lymphocytes % Monocytes % Eosinophils % Basophils % Nucleated RBC % Retic Count Sodium Potassium Chloride Carbon Dioxide Anion Gap BUN Creatinine Est GFR (CKD-EPI)AfAm Est GFR (CKD-EPI)NonAf Random Glucose Calcium Magnesium Iron TIBC Iron Saturation Unsaturated IBC Ferritin Total Bilirubin AST ALT Alkaline Phosphatase LD Total Total Protein Albumin Lipase Vitamin B12 Serum Folate Beta HCG, Quant Stool Occult Blood COVID-19 (ROBBIE) Anti-A Titer Cancelled Blood Type A POSITIVE Cancelled A POSITIVE Antibody Screen Cancelled Negative Crossmatch See Detail See Detail 05/08/20 05/09/20 05/09/20 13:45 07:09 07:09 WBC 3.9 L RBC 3.12 L Hgb 6.0 L* Hct 19.7 L D MCV 63.1 L MCH 19.3 L MCHC 30.6 L RDW 17.6 H Plt Count 258 MPV 9.2 Absolute Neuts (auto) 2.0 Neutrophils % 52.1 Lymphocytes % 38.7 D Monocytes % 7.4 Eosinophils % 1.3 D Basophils % 0.5 Nucleated RBC % 0 Retic Count Sodium 140 Potassium 4.0 Chloride 110 H Carbon Dioxide 27 Anion Gap 4 L BUN 6.6 L Creatinine 0.6 Est GFR (CKD-EPI)AfAm 140.77 Est GFR (CKD-EPI)NonAf 121.46 Random Glucose 76 Calcium 8.2 L Magnesium 2.2 Iron TIBC Iron Saturation Unsaturated IBC Ferritin Total Bilirubin < 0.1 L AST 18 ALT 21 Alkaline Phosphatase 50 LD Total Total Protein 5.6 L Albumin 2.7 L Lipase Vitamin B12 Serum Folate Beta HCG, Quant Stool Occult Blood Negative COVID-19 (ROBBIE) Anti-A Titer Blood Type Antibody Screen Crossmatch 05/09/20 07:09 WBC RBC Hgb Hct MCV MCH MCHC RDW Plt Count MPV Absolute Neuts (auto) Neutrophils % Lymphocytes % Monocytes % Eosinophils % Basophils % Nucleated RBC % Retic Count 0.88 Sodium Potassium Chloride Carbon Dioxide Anion Gap BUN Creatinine Est GFR (CKD-EPI)AfAm Est GFR (CKD-EPI)NonAf Random Glucose Calcium Magnesium Iron TIBC Iron Saturation Unsaturated IBC Ferritin Total Bilirubin AST ALT Alkaline Phosphatase LD Total Total Protein Albumin Lipase Vitamin B12 Serum Folate Beta HCG, Quant Stool Occult Blood COVID-19 (ROBBIE) Anti-A Titer Blood Type Antibody Screen Crossmatch Home Medications Medication Instructions Recorded NK [No Known Home Medication] 05/08/20 Current Medications Generic Name Dose Route Start Last Admin Trade Name Freq PRN Reason Stop Dose Admin Acetaminophen 1,000 mg 05/08/20 18:34 05/09/20 06:53 Ofirmev Injection - IVPB 1,000 mg Q6H PRN Administration PAIN LEVEL 1-5 Sodium Chloride 1,000 mls @ 100 mls/hr 05/08/20 13:15 05/08/20 15:57 Normal Saline - IV 100 mls/hr ASDIR JAYLA Administration Iron Sucrose 200 mg/ Sodium 100 mls @ 100 mls/hr 05/10/20 10:00 Chloride IVPB 05/16/20 10:59 Q48H JAYLA Pantoprazole Sodium 40 mg 05/08/20 22:00 05/09/20 10:53 Protonix - PO 40 mg BID JAYLA Administration ASSESSMENT AND PLAN: 29 F Severe microcytic anemia (GI v.s. 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
--- NOTE | 2020-05-09 13:44 | PN ---
Physical Exam: SUBJECTIVE: Patient seen and examined at bedside. pt endorses abdominal pain. denies vaginal bleeding or hematochesis OBJECTIVE: Vital Signs Period Temp Pulse Resp BP Sys/Dowling Pulse Ox Last 24 Hr 98.1 F-98.5 F 61-77 18-20 90-109/50-65 96-100 GENERAL: The patient is awake, alert, and fully oriented, in no acute distress. HEAD: Normal with no signs of trauma. LUNGS: Breath sounds equal, clear to auscultation bilaterally, no wheezes, no crackles, no accessory muscle use. HEART: Regular rate and rhythm, S1, S2 without murmur, rub or gallop. ABDOMEN: Soft, TTP, nondistended, normoactive bowel sounds, no guarding EXTREMITIES: 2+ pulses, warm, well-perfused, no edema. NEUROLOGICAL: Cranial nerves II through XII grossly intact. Normal speech 05/09/20 07:09 05/09/20 07:09 Active Medications Generic Name Dose Route Start Last Admin Trade Name Freq PRN Reason Stop Dose Admin Acetaminophen 1,000 mg 05/08/20 18:34 05/09/20 06:53 Ofirmev Injection - IVPB 1,000 mg Q6H PRN Administration PAIN LEVEL 1-5 Sodium Chloride 1,000 mls @ 100 mls/hr 05/08/20 13:15 05/08/20 15:57 Normal Saline - IV 100 mls/hr ASDIR JAYLA Administration Iron Sucrose 200 mg/ Sodium 100 mls @ 100 mls/hr 05/10/20 10:00 Chloride IVPB 05/16/20 10:59 Q48H JAYLA Pantoprazole Sodium 40 mg 05/08/20 22:00 05/09/20 10:53 Protonix - PO 40 mg BID JAYLA Administration CT abdomen/pelvis with contrast A 4.4 x 4 cm right adnexal dermoid cyst is noted. 3 x 2 cm involuting left ovarian follicle/cyst. A 2.3 x 1.7 cm fluid structure is noted within the right paramedian aspect of the upper abdomen adjacent to the inferior border of the pancreatic head - representing a possible exophytic pancreatic cyst versus incidental visualization of a fluid-filled bowel loop. Correlation with nonemergent contrast enhanced MRI or follow-up CT with intravenous and oral contrast is suggested. ASSESSMENT/PLAN: 29 yo F PMH anemia, s/p gastric sleeve (3 years ago) p/w lower abdominal pain and constipation. She is being admitted for microcytic anemia. microcytic anemia -likely 2/2 iron-deficiency - transfuse 2 u prbc - rpt H/H in evening - FOBT neg - heme consutled - electrophoresis pending abdominal pain - CT findings above. pending rpt with IV and PO contrast . 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 ovarian cyst can be reassess outpt with u/s in 4-6 w . not likely cause DVT Ppx: SCDs dispo: M/ s ATTENDING PHYSICIAN STATEMENT I saw and evaluated the patient. I reviewed the resident's note and discussed the case with the resident. I agree with the resident's findings and plan as documented. SUBJECTIVE: OBJECTIVE: ASSESSMENT AND PLAN:
--- NOTE | 2020-05-09 15:05 | PN ---
Teaching Attending Note Name of Resident: Gena Mclaughlin ATTENDING PHYSICIAN STATEMENT I saw and evaluated the patient. I reviewed the resident's note and discussed the case with the resident. I agree with the resident's findings and plan as documented. SUBJECTIVE: pt seen and examined at bedside OBJECTIVE: Last Vital Signs Temp Pulse Resp BP Pulse Ox 98.4 F 72 18 93/56 L 96 05/09/20 13:26 05/09/20 13:26 05/09/20 13:26 05/09/20 13:26 05/09/20 13:26 GENERAL: Awake, alert, and fully oriented, in no acute distress. HEAD: Normal with no signs of trauma. EYES: Pupils equal, round and reactive to light, sclera anicteric, conjunctiva clear. LUNGS: Breath sounds equal, clear to auscultation bilaterally. No wheezes, and no crackles. No accessory muscle use. HEART: Regular rate and rhythm, normal S1 and S2 ABDOMEN: Soft, nontender, not distended MUSCULOSKELETAL: Normal range of motion at all joints. No bony deformities or tenderness. No CVA tenderness. UPPER EXTREMITIES: 2+ pulses, warm, well-perfused. No cyanosis. No clubbing. No peripheral edema. LOWER EXTREMITIES: 2+ pulses, warm, well-perfused. No calf tenderness. No peripheral edema. NEUROLOGICAL: Cranial nerves II-XII intact. Normal speech. CBCD WBC 3.9 K/mm3 (4.0-10.0) L 05/09/20 07:09 RBC 3.12 M/mm3 (3.60-5.2) L 05/09/20 07:09 Hgb 6.0 GM/dL (10.7-15.3) L* 05/09/20 07:09 Hct 19.7 % (32.4-45.2) L D 05/09/20 07:09 MCV 63.1 fl (80-96) L 05/09/20 07:09 MCHC 30.6 g/dl (32.0-36.0) L 05/09/20 07:09 RDW 17.6 % (11.6-15.6) H 05/09/20 07:09 Plt Count 258 K/MM3 (134-434) 05/09/20 07:09 MPV 9.2 fl (7.5-11.1) 05/09/20 07:09 CMP Sodium 140 mmol/L (136-145) 05/09/20 07:09 Potassium 4.0 mmol/L (3.5-5.1) 05/09/20 07:09 Chloride 110 mmol/L (98-107) H 05/09/20 07:09 Carbon Dioxide 27 mmol/L (21-32) 05/09/20 07:09 Anion Gap 4 MMOL/L (8-16) L 05/09/20 07:09 BUN 6.6 mg/dL (7-18) L 05/09/20 07:09 Creatinine 0.6 mg/dL (0.55-1.3) 05/09/20 07:09 Calcium 8.2 mg/dL (8.5-10.1) L 05/09/20 07:09 Total Bilirubin < 0.1 mg/dL (0.2-1) L 05/09/20 07:09 AST 18 U/L (15-37) 05/09/20 07:09 ALT 21 U/L (13-61) 05/09/20 07:09 Alkaline Phosphatase 50 U/L (45-117) 05/09/20 07:09 Total Protein 5.6 g/dl (6.4-8.2) L 05/09/20 07:09 Albumin 2.7 g/dl (3.4-5.0) L 05/09/20 07:09 Active Medications Acetaminophen (Ofirmev Injection -) 1,000 mg IVPB Q6H PRN PRN Reason: PAIN LEVEL 1-5 Last Admin: 05/09/20 06:53 Dose: 1,000 mg Documented by: Sodium Chloride (Normal Saline -) 1,000 mls @ 100 mls/hr IV ASDIR JAYLA Last Admin: 05/08/20 15:57 Dose: 100 mls/hr Documented by: Iron Sucrose 200 mg/ Sodium (Chloride) 100 mls @ 100 mls/hr IVPB Q48H JAYLA Stop: 05/16/20 10:59 Pantoprazole Sodium (Protonix -) 40 mg PO BID JAYLA Last Admin: 05/09/20 10:53 Dose: 40 mg Documented by: ASSESSMENT AND PLAN: 29 yo F PMH anemia, s/p gastric sleeve (3 years ago) p/w lower abdominal pain and constipation. She is being admitted for microcytic anemia. # microcytic anemia 2/2 iron-deficiency transfuse 2 u prbc trend H/H injectafer 750mg IVSS now then another dose week later hemeonc consutl appreciated # abdominal pain resolved CT with contrast pending (non contrast imaging noted pancreatic cyst, dermoid cyst) c/w pantoprazole daily Last BM yesterday GI consult appreciated Court Interpreter consult appreciated Dermoid ovarian cyst (outpt with u/s in 4-6 w) chronic constipation DVT Proph w/ SCDs
--- NOTE | 2020-05-09 15:07 | PN.GI ---
GI Progress Note Subjective: No acute events Receiving 1st unit PRBC States that she has a known h/o anemia prior to her gastric sleeve surgery CT scan reveals ? pancreatic cyst vs. bowel loop, right sided ovarian cyst - Objective Vital Signs: Vital Signs Temperature 98.4 F 05/09/20 13:26 Pulse Rate 72 05/09/20 13:26 Respiratory Rate 18 05/09/20 13:26 Blood Pressure 93/56 L 05/09/20 13:26 O2 Sat by Pulse Oximetry (%) 96 05/09/20 13:26 Constitutional: Calm Eyes: No: Sclera Icterus Cardiovascular: Yes: Regular Rate and Rhythm Respiratory: Yes: CTA Bilaterally Gastrointestinal Inspection: No: Distention ...Auscultate: Yes: Normoactive Bowel Sounds ...Palpate: Yes: Tenderness (TTP Left pelvis) ...Percussion: No: Tympanitic Edema: No (No LE edema) Labs: CBC, BMP 05/09/20 07:09 05/09/20 07:09 INR, PTT INR 1.17 (0.83-1.09) H 05/08/20 10:08 Assessment/Plan Anemia: Iron defieicncy Patient states having know anemia prior to gastric sleeve For EGD tomorrow to evaluate gastric sleeve anatomy and small bowel. Discussed potential risks of the procedure like but not limited to bleeding, perforation r equiring surgery to repair, infection, sedation medication effects all of which could be potentially life threatening. She has agreed to the procedure. Will ultimately need colonoscopy. patient ate breakast and lunch today so bowel prep would be suboptimal Abnormal CT scan findings: Having repeat CT scan with PO contrast
[2020-05-09 19:25] LABS: HEMATOCRIT 25.9 % (32.4-45.2); HEMOGLOBIN 8.1 GM/dL (10.7-15.3); MCH 21.2 pg (25.7-33.7); MCHC 31.5 g/dl (32.0-36.0); MEAN CELL VOLUME 67.4 fl (80-96); MEAN PLT VOLUME 9.2 fl (7.5-11.1); PLATELET COUNT 279 K/MM3 (134-434); RBC 3.84 M/mm3 (3.60-5.2); RDW 20.7 % (11.6-15.6); WHITE BLOOD COUNT 5.3 K/mm3 (4.0-10.0)
[2020-05-09] MEDS: SODIUM CHLORIDE 1,000 ML IV SCH (20:40)
[2020-05-10 08:47] LABS: BASO % 0.7 % (0-2.0); EOS % 1.3 % (0-4.5); HEMATOCRIT 26.3 % (32.4-45.2); HEMOGLOBIN 8.3 GM/dL (10.7-15.3); LYMPH % 35.6 % (8-40); MCH 21.5 pg (25.7-33.7); MCHC 31.6 g/dl (32.0-36.0); MEAN CELL VOLUME 68.1 fl (80-96); MEAN PLT VOLUME 9.3 fl (7.5-11.1); MONO % 6.6 % (3.8-10.2); NEUT % 55.8 % (42.8-82.8); PLATELET COUNT 255 K/MM3 (134-434); RBC 3.86 M/mm3 (3.60-5.2); RDW 22.6 % (11.6-15.6); WHITE BLOOD COUNT 4.1 K/mm3 (4.0-10.0)
[2020-05-10 08:55] LABS: ALBUMIN 2.9 g/dl (3.4-5.0); BILIRUBIN,TOTAL 0.6 mg/dL (0.2-1); BLOOD UREA NITROGEN 6.1 mg/dL (7-18); CALCIUM 8.2 mg/dL (8.5-10.1); CREATININE 0.6 mg/dL (0.55-1.3); MAGNESIUM 2.1 mg/dL (1.8-2.4); PHOSPHOROUS 3.5 mg/dL (2.5-4.9); POTASSIUM 4.4 mmol/L (3.5-5.1); TOT PROT 5.9 g/dl (6.4-8.2)
--- NOTE | 2020-05-10 09:24 | PN ---
Progress Note (short form) - Note Progress Note: EGD complete, report left in procedural section of the physical chart and will be scanned into [employer].
[2020-05-10] MEDS ORDERED: IRON SUCROSE INJECTION 200 MG in SODIUM CHLORIDE 90 ML IVPB SCH (10:00)
[2020-05-10 10:08] VITALS: TEMP 98.7
[2020-05-10] MEDS: SODIUM CHLORIDE 1,000 ML IV SCH (10:11)
[2020-05-10] MEDS: PANTOPRAZOLE 40 MG TABLET PO SCH (10:11)
--- NOTE | 2020-05-10 14:19 | PN ---
Progress Note (short form) - Note Progress Note: Repeat CT scan reviewed. No cyst identified. Did have enlarged liver and right sided fat containing spigelian hernia. Can have surgery comment re: spigelian hernia, otherwise continued GI evaluation as an outpatient. Recall as needed. GI will sign off now.
--- NOTE | 2020-05-10 15:12 | PN ---
Teaching Attending Note Name of Resident: Geoff Baez ATTENDING PHYSICIAN STATEMENT I saw and evaluated the patient. I reviewed the resident's note and discussed the case with the resident. I agree with the resident's findings and plan as documented. SUBJECTIVE: pt seen and examined OBJECTIVE: Last Vital Signs Temp Pulse Resp BP Pulse Ox 98.7 F 56 L 16 97/61 100 05/10/20 10:13 05/10/20 10:13 05/10/20 10:13 05/10/20 10:13 05/10/20 10:13 GENERAL: Awake, alert, and fully oriented, in no acute distress. LUNGS: Breath sounds equal, clear to auscultation bilaterally. No wheezes, and no crackles. No accessory muscle use. HEART: Regular rate and rhythm, normal S1 and S2 ABDOMEN: Soft, nontender, not distended NEUROLOGICAL: Cranial nerves II-XII intact. Normal speech. CBCD WBC 4.1 K/mm3 (4.0-10.0) 05/10/20 06:56 RBC 3.86 M/mm3 (3.60-5.2) 05/10/20 06:56 Hgb 8.3 GM/dL (10.7-15.3) L 05/10/20 06:56 Hct 26.3 % (32.4-45.2) L 05/10/20 06:56 MCV 68.1 fl (80-96) L 05/10/20 06:56 MCHC 31.6 g/dl (32.0-36.0) L 05/10/20 06:56 RDW 22.6 % (11.6-15.6) H 05/10/20 06:56 Plt Count 255 K/MM3 (134-434) 05/10/20 06:56 MPV 9.3 fl (7.5-11.1) 05/10/20 06:56 CMP Sodium 140 mmol/L (136-145) 05/10/20 06:56 Potassium 4.4 mmol/L (3.5-5.1) 05/10/20 06:56 Chloride 109 mmol/L (98-107) H 05/10/20 06:56 Carbon Dioxide 27 mmol/L (21-32) 05/10/20 06:56 Anion Gap 4 MMOL/L (8-16) L 05/10/20 06:56 BUN 6.1 mg/dL (7-18) L 05/10/20 06:56 Creatinine 0.6 mg/dL (0.55-1.3) 05/10/20 06:56 Calcium 8.2 mg/dL (8.5-10.1) L 05/10/20 06:56 Total Bilirubin 0.6 mg/dL (0.2-1) 05/10/20 06:56 AST 44 U/L (15-37) H 05/10/20 06:56 ALT 44 U/L (13-61) 05/10/20 06:56 Alkaline Phosphatase 63 U/L (45-117) 05/10/20 06:56 Total Protein 5.9 g/dl (6.4-8.2) L 05/10/20 06:56 Albumin 2.9 g/dl (3.4-5.0) L 05/10/20 06:56 Active Medications Acetaminophen (Ofirmev Injection -) 1,000 mg IVPB Q6H PRN PRN Reason: PAIN LEVEL 1-5 Last Admin: 05/09/20 06:53 Dose: 1,000 mg Documented by: Sodium Chloride (Normal Saline -) 1,000 mls @ 100 mls/hr IV ASDIR [facility] Last Admin: 05/10/20 10:11 Dose: 100 mls/hr Documented by: Iron Sucrose 200 mg/ Sodium (Chloride) 100 mls @ 100 mls/hr IVPB Q48H [facility] Stop: 05/16/20 10:59 Last Admin: 05/10/20 10:11 Dose: 100 mls/hr Documented by: Pantoprazole Sodium (Protonix -) 40 mg PO BID [facility] Last Admin: 05/10/20 10:11 Dose: 40 mg Documented by: ASSESSMENT AND PLAN: 29 yo F PMH anemia, s/p gastric sleeve (3 years ago) p/w lower abdominal pain and constipation. She is being admitted for microcytic anemia. # microcytic anemia 2/2 iron-deficiency stable post transfusion trend H/H recieved IV venofer, will need more in outpatient setting hemeonc consutl appreciated # abdominal pain resolved c/w pantoprazole daily s/p EGD (schatzki ring, jeff?) CT abdomen showing hepatomegaly, spigelian herniam dermoid cyst finding discussed with patient, management options and outpatient follow ups discussed GI consult appreciated Brimmer Blocker consult appreciated Dermoid ovarian cyst (outpt with u/s in 4-6 w) chronic constipation DVT Proph w/ SCDs
--- NOTE | 2020-05-10 15:19 | DS ---
Physical Exam: SUBJECTIVE: Patient seen and examined OBJECTIVE: Vital Signs Period Temp Pulse Resp BP Sys/Dowling Pulse Ox Last 24 Hr 97.8 F-98.9 F 56-74 10-18 87-111/50-81 96-100 PHYSICAL EXAM GENERAL: The patient is awake, alert, and fully oriented, in no acute distress. HEAD: Normal with no signs of trauma. EYES: PERRL, extraocular movements intact, sclera anicteric, conjunctiva clear. ENT: Ears normal, nares patent, oropharynx clear without exudates, moist mucous membranes. NECK: Trachea midline, full range of motion, supple. LUNGS: Breath sounds equal, clear to auscultation bilaterally, no wheezes, no crackles, no accessory muscle use. HEART: Regular rate and rhythm, S1, S2 without murmur, rub or gallop. ABDOMEN: Soft, nontender, nondistended, normoactive bowel sounds, no guarding, no rebound, no hepatosplenomegaly, no masses. EXTREMITIES: 2+ pulses, warm, well-perfused, no edema. NEUROLOGICAL: Cranial nerves II through XII grossly intact. Normal speech, gait not observed. PSYCH: Normal mood, normal affect. SKIN: Warm, dry, normal turgor, no rashes or lesions noted. LABS Laboratory Results - last 24 hr 05/08/20 05/09/20 05/10/20 12:25 18:00 06:56 WBC 5.3 4.1 RBC 3.84 3.86 Hgb 8.1 L 8.3 L Hct 25.9 L D 26.3 L MCV 67.4 L 68.1 L MCH 21.2 L 21.5 L MCHC 31.5 L 31.6 L RDW 20.7 H 22.6 H Plt Count 279 255 MPV 9.2 9.3 Absolute Neuts (auto) 2.3 Neutrophils % 55.8 Lymphocytes % 35.6 Monocytes % 6.6 Eosinophils % 1.3 Basophils % 0.7 Nucleated RBC % 0 Sodium Potassium Chloride Carbon Dioxide Anion Gap BUN Creatinine Est GFR (CKD-EPI)AfAm Est GFR (CKD-EPI)NonAf Random Glucose Calcium Phosphorus Magnesium Total Bilirubin AST ALT Alkaline Phosphatase Total Protein Albumin Blood Type A POSITIVE Antibody Screen Negative Crossmatch See Detail 05/10/20 06:56 WBC RBC Hgb Hct MCV MCH MCHC RDW Plt Count MPV Absolute Neuts (auto) Neutrophils % Lymphocytes % Monocytes % Eosinophils % Basophils % Nucleated RBC % Sodium 140 Potassium 4.4 Chloride 109 H Carbon Dioxide 27 Anion Gap 4 L BUN 6.1 L Creatinine 0.6 Est GFR (CKD-EPI)AfAm 140.77 Est GFR (CKD-EPI)NonAf 121.46 Random Glucose 77 Calcium 8.2 L Phosphorus 3.5 Magnesium 2.1 Total Bilirubin 0.6 AST 44 H ALT 44 Alkaline Phosphatase 63 Total Protein 5.9 L Albumin 2.9 L Blood Type Antibody Screen Crossmatch HOSPITAL COURSE: Date of Admission:05/08/20 29 yo F PMH anemia, s/p gastric sleeve (3 years ago) p/w lower abdominal pain and constipation. She is being admitted for microcytic anemia 2/2 iron- deficiency. Received 2 units of PRBCs, H/H improved form 6.0 to 8.1. she was stable post transfusion. She recieved IV venofer, she was informed that she will need more in outpatient setting. She was evaluated by GI with EGD which revealed schatzki ring, and possible jeff, no acute bleeding. CT abdomen revealed hepatomegaly, spigelian herniam dermoid cyst. Finding were discussed with patient, management options and outpatient follow ups discussed Patient is clinically stable for discharge. She was prescribed 2 weeks of ferrous sulfate 325 and Protonix, until her next follow up. 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 Date of Discharge: 05/10/20 Minutes to complete discharge: 36 Discharge Summary Problems reviewed: Yes Reason For Visit: ANEMIA,ABD PAIN Current Active Problems Anemia (Chronic) Condition: Good - Instructions Diet, Activity, Other Instructions: YOUR VISIT: You were admitted to the hospital for anemia which is a low blood count. Labs showed evidence for Iron deficiency, which is most likely contributing to your low blood count. We gave you 2 units of red blood cells, which improved your blood volume. You were evaluated by our GI services with an endoscopy, to evaluate for any bleeding from the stomach. The Endoscopy did not reveal any abnormalities. CT scan of your stomach revealed a ovarian cyst and hernia in your abdomen along with an enlarged liver. You will need to follow up with surgery and director of transportation outpatient. MEDICATIONS: Please START taking Iron supplements, Ferrous sulfate 325mg Daily for 2 weeks. Plese START taking Protonix 40 mg twice a day for 2 weeks. Continue to take all other home medications as prescribed FOLLOW UPS: Please follow up with your GI doctor, Dr. Hernandez, within 1 weeks to discuss your EGD finding and continued GI evaluation as an outpatient. Follow up with Dr. Eisenberg, your director of transportation within 1 week for repeat ultrasound and further evaluation. Please also follow up with the surgeon Dr. Rhodes within 1 to 2 weeks for further evaluation of your hernia. Please visit your primary care provider within 2 weeks to follow up with your lab work and hospital visit. ADDITIONAL INSTRUCTIONS: You are being discharged to your home. Please return to the Emergency department if you are experiencing worsening or concerning symptoms. Referrals: Hoang Palomino MD [Staff Physician] - 1 Week Delfino Rhodes MD [Staff Physician] - 1 Week (F/u on hernia ) Zeeshan Hernandez DO [Staff Physician] - 1 Week Melissa Dumont MD [Staff Physician] - 1 Week (r/p US in 4-6 weeks) Disposition: HOME - Home Medications Comprehensive Discharge Medication List: Ambulatory Orders Ferrous Sulfate 325 mg PO DAILY #14 tablet 05/10/20 Pantoprazole Sodium [Protonix -] 40 mg PO BID #28 tablet.ec 05/10/20 This patient is new to me today: No Emergency Visit: Yes ED Registration Date: 05/08/20 Care time: The patient presented to the Emergency Department on the above date and was hospitalized for further evaluation of their emergent condition. Critical Care patient: No - Discharge Referral Referred to [facility] Med P.C.: No ATTENDING PHYSICIAN STATEMENT I saw and evaluated the patient. I reviewed the resident's note and discussed the case with the resident. I agree with the resident's findings and plan as documented. SUBJECTIVE: OBJECTIVE: ASSESSMENT AND PLAN:
[2020-05-10 15:34] VITALS: BP 97/51; PULSE 75
[2020-05-10 18:07] LABS: HGB SOLUBILITY Positive (Negative); Hgb C 0 % (0.0); Hgb F 0 % (0.0-2.0); Hgb S 33.6 % (0.0)
--- NOTE | 2020-05-14 12:42 | PATH ---
Surgical Pathology Report Patient Name: JOSEFINA FUENTES Med. Rec. #: [id number] /Age/Gender: 1990 (Age: 29) / F Account: [id number] Location: [facility] MED/SURG Taken: 05/10/2020 Received: 05/10/2020 Reported: 05/14/2020 Physicians: Cristobal Sanchez D.O. Specimen(s) Received A: SECOND PORTION OF DUODENUM AND BULB B: BODY OF STOMACH C: DISTAL ESOPHAGUS Clinical History Anemia Postoperative diagnosis: Gastritis, anemia Final Diagnosis A. DUODENUM, SECOND PORTION AND BULB, BIOPSY: DUODENAL MUCOSA WITHOUT SIGNIFICANT PATHOLOGIC FINDINGS. B. STOMACH, BODY, BIOPSY: GASTRIC BODY MUCOSA WITH MILD CHRONIC GASTRITIS. IMMUNOHISTOCHEMICAL STAIN FOR H. PYLORI IS NEGATIVE. C. DISTAL ESOPHAGUS, BIOPSY: SQUAMOUS MUCOSA WITH MILD BASAL CELL HYPERPLASIA AND FOCAL ACUTE ESOPHAGITIS. PAS SPECIAL STAIN IS NEGATIVE FOR FUNGAL HYPHAE. Positive and negative controls (internal if applicable) show appropriate results. Electronically Signed Jessica Ying M.D. Gross Description A. Received in formalin, labeled "biopsy second portion of duodenum and bulb" are 2 mercado, irregular portions of soft tissue measuring 0.3 and 0.4 cm. in greatest dimension. The specimens are submitted in toto in one cassette. B. Received in formalin, labeled "biopsy body of stomach" are 2 mercado, irregular portions of soft tissue measuring 0.2 and 0.4 cm. in greatest dimension. The specimens are submitted in toto in one cassette. C. Received in formalin, labeled "biopsy distal esophagus" is a mercado, irregular portion of soft tissue measuring 0.5 cm. in greatest dimension. The specimen is submitted in toto in one cassette. DL/05/10/2020 saudi/05/10/2020
== END 2020-05-10 17:30 | disposition home or self-care (01) | DRG 812 ==
LOC: JER 08:56 → JERBED 12:04 → J7W 13:59
PROVIDERS: ATTEND Student in an Organized Health Care Education/Training Program
PROC: 30233N1 Transfusion of Nonautologous Red Blood Cells into Peripheral Vein, Percutaneous Approach (ICD-10-PCS; 2020-05-08)
PROC: 0DB68ZX Excision of Stomach, Via Natural or Artificial Opening Endoscopic, Diagnostic (ICD-10-PCS; 2020-05-10)
PROC: 0DB58ZX Excision of Esophagus, Via Natural or Artificial Opening Endoscopic, Diagnostic (ICD-10-PCS; 2020-05-10)
PROC: 0DB98ZX Excision of Duodenum, Via Natural or Artificial Opening Endoscopic, Diagnostic (ICD-10-PCS; principal; 2020-05-10 09:45)
DX: D50.9 Iron deficiency anemia, unspecified (principal); K59.00 Constipation, unspecified; I95.9 Hypotension, unspecified; K22.2 Esophageal obstruction; K29.60 Other gastritis without bleeding; K43.9 Ventral hernia without obstruction or gangrene; R16.0 Hepatomegaly, not elsewhere classified; D27.9 Benign neoplasm of unspecified ovary; K59.09 Other constipation; D27.0 Benign neoplasm of right ovary
CPT/HCPCS: 36415; 36430; 74177-TC; 80048; 80053; 81003; 82272; 82607; 82728; 82746; 83021; 83540; 83550; 83615; 83690; 83735; 84100; 84207; 84702; 85025; 85027; 85045; 85610; 85660; 86850; 86900; 86901; 86922; 88305-TC; 93005; 93010; 99285-25; J0131; J1756; P9058; Q9967; U0003

== ENCOUNTER 2021-02-04 10:35 | Emergency (ER) | payer BC, OTHER ==
[2021-02-04 10:43] VITALS: BMI 30.7
[2021-02-04 13:20] VITALS: TEMP 98.3
[2021-02-04 14:33] VITALS: BP 101/58; PULSE 63
[2021-02-04 14:44] LABS: EPI CELLS 17 /uL (0-25.1); HYALINE CASTS 1 /uL (0-3.1); PH,URINE 6.5 (5.0-8.0); URINE APPEARANCE CLEAR; URINE BACTERIA 783 /uL (0-1359); URINE BILIRUBIN NEGATIVE (NEGATIVE); URINE COLOR YELLOW; URINE GLUCOSE (UA) NEGATIVE (NEGATIVE); URINE KETONE 1+ (NEGATIVE); URINE LEUK ESTERASE 1+ (NEGATIVE); URINE NITRITE NEGATIVE (NEGATIVE); URINE PROTEIN NEGATIVE (NEGATIVE); URINE RBC 11 /uL (0-23.9); URINE WBC 27 /uL (0-25.8)
== END 2021-02-04 15:30 | disposition home or self-care (01) ==
LOC: JER 10:35
DX: R10.2 Pelvic and perineal pain (principal); Z3A.36 36 weeks gestation of pregnancy
CPT/HCPCS: 81003; 99283-25

== ENCOUNTER 2021-04-02 09:32 | Inpatient (IN) | payer BC, OTHER ==
[2021-04-02 10:27] LABS: BASO % 0.6 % (0-2.0); EOS % 0.5 % (0-4.5); HEMATOCRIT 26.5 % (32.4-45.2); HEMOGLOBIN 8.6 GM/dL (10.7-15.3); LYMPH % 23.8 % (8-40); MCH 22.6 pg (25.7-33.7); MCHC 32.3 g/dl (32.0-36.0); MEAN PLT VOLUME 9.4 fl (7.5-11.1); MONO % 4.7 % (3.8-10.2); NEUT % 70.4 % (42.8-82.8); PLATELET COUNT 280 10^3/uL (134-434); RBC 3.79 M/mm3 (3.60-5.2); RDW 16.1 % (11.6-15.6); WHITE BLOOD COUNT 6.7 K/mm3 (4.0-10.0)
[2021-04-02 10:33] LABS: INR 0.89 (0.83-1.09)
[2021-04-02 10:36] LABS: ACTIVATED PTT 24.4 SECONDS (25.2-36.5)
[2021-04-02 10:45] LABS: CALCIUM 8.2 mg/dL (8.5-10.1)
[2021-04-02 10:46] LABS: BLOOD UREA NITROGEN 8.2 mg/dL (7-18)
[2021-04-02 10:49] LABS: CREATININE 0.8 mg/dL (0.55-1.3)
[2021-04-02] MEDS ORDERED: CITRIC ACID/SODIUM CITRATE 30 ML UNIT-DOSE CUP PO PRN (10:59)
[2021-04-02] MEDS ORDERED: PROMETHAZINE HCL 25 MG/1 ML VIAL IVPUSH ONE (10:59)
[2021-04-02] MEDS ORDERED: ELECTROLYTE-148 SOLN 1,000 ML IV SCH (11:00)
[2021-04-02] MEDS ORDERED: BUTORPHANOL TARTRATE 1 MG/ML VIAL IVPB SCH (11:00)
[2021-04-02 11:11] VITALS: BMI 31.2
[2021-04-02] MEDS ORDERED: FENTANYL/BUPIVACAINE/NS/PF - PCEA - 50 ML DISP.SYRIN EP ONE (11:16)
[2021-04-02] MEDS ORDERED: LIDOCAINE HCL/EPINEPHRINE/PF 10 ML VIAL ONE (11:33)
[2021-04-02 11:36] LABS: SYPHILIS W/ RPR CONF NON-REACTIVE (NONREACTIVE)
[2021-04-02] MEDS: FENTANYL/BUPIVACAINE/NS/PF - PCEA - 50 ML DISP.SYRIN EP SCH (11:50)
[2021-04-02 12:05] LABS: HIV INTERPRETATION NEGATIVE (NEGATIVE)
[2021-04-02] MEDS ORDERED: NALOXONE HCL 0.4 MG/ML VIAL IVPUSH PRN (12:33)
[2021-04-02] MEDS ORDERED: OXYTOCIN 20 UNITS in 0.9% NS 20 UNIT/1,000 ML INFUS.BAG IV ONE ×2 (13:02→14:20)
[2021-04-02] MEDS: OXYTOCIN 20 UNITS in 0.9% NS 20 UNIT/1,000 ML INFUS.BAG IV SCH ×2 (13:15→14:49)
[2021-04-02] MEDS ORDERED: WITCH HAZEL 50% (TUCKS) 40 PAD/JAR PAD TP PRN (13:19)
[2021-04-02] MEDS ORDERED: BISACODYL 10 MG SUPP.RECT RC PRN (13:19)
[2021-04-02] MEDS ORDERED: BENZOCAINE 28 GM HEMORRHOIDAL OINTMENT TP PRN (13:19)
[2021-04-02] MEDS ORDERED: METHYLERGONOVINE MALEATE 0.2 MG/1 ML AMP IM PRN (13:19)
[2021-04-02] MEDS ORDERED: BENZOCAINE 20% 57 GM BOTTLE TP PRN (13:19)
[2021-04-02 15:09] LABS: CORD BASE EXCESS -2.4 mmol/L (0-2); CORD HCO3 23.4 mmHg (20-29); CORD PCO2 43.9 mmHg (30-78); CORD pH 7.345 (7.14-7.44)
[2021-04-02] MEDS: ACETAMINOPHEN 325 MG TABLET (FP) PO PRN (15:22)
[2021-04-02] MEDS: IBUPROFEN 600 MG TABLET (FP) PO PRN (15:22)
[2021-04-02] MEDS: FERROUS SO4 325 MG TABLET (FP) PO SCH (16:47)
[2021-04-03] MEDS: IBUPROFEN 600 MG TABLET (FP) PO PRN ×3 (01:07→17:23)
[2021-04-03] MEDS: ACETAMINOPHEN 325 MG TABLET (FP) PO PRN ×2 (01:08→08:45)
[2021-04-03] MEDS: FERROUS SO4 325 MG TABLET (FP) PO SCH ×3 (08:23→17:23)
[2021-04-03 08:37] LABS: BASO % 0.5 % (0-2.0); EOS % 0.5 % (0-4.5); HEMATOCRIT 21.3 % (32.4-45.2); LYMPH % 25.9 % (8-40); MCH 22.6 pg (25.7-33.7); MCHC 32.1 g/dl (32.0-36.0); MEAN CELL VOLUME 70.4 fl (80-96); MEAN PLT VOLUME 9.6 fl (7.5-11.1); MONO % 6.2 % (3.8-10.2); NEUT % 66.9 % (42.8-82.8); PLATELET COUNT 203 10^3/uL (134-434); RBC 3.03 M/mm3 (3.60-5.2); RDW 16.4 % (11.6-15.6); WHITE BLOOD COUNT 7.5 K/mm3 (4.0-10.0)
[2021-04-03 09:14] LABS: HEMOGLOBIN 6.8 GM/dL (10.7-15.3)
[2021-04-03] MEDS: PRENATAL VITAMINS W/ FOLIC ACID TABLET (FP) PO SCH (09:38)
[2021-04-03] MEDS ORDERED: DIPHTH,PERTUSS(ACELL),TET 0.5 ML DISP.SYRIN IM ONE (10:00)
[2021-04-03] MEDS: FENTANYL/BUPIVACAINE/NS/PF - PCEA - 50 ML DISP.SYRIN EP SCH (20:21)
[2021-04-03 21:07] VITALS: PULSE 56
[2021-04-03] MEDS ORDERED: SENNOSIDES/DOCUSATE COMBO (SENNA PLUS) TABLET (UD) PO PRN (22:00)
[2021-04-04] MEDS: IBUPROFEN 600 MG TABLET (FP) PO PRN ×2 (01:31→08:59)
[2021-04-04] MEDS: ACETAMINOPHEN 325 MG TABLET (FP) PO PRN (01:31)
[2021-04-04 08:20] LABS: HEMATOCRIT 25.6 % (32.4-45.2); HEMOGLOBIN 8.5 GM/dL (10.7-15.3); MCH 24.8 pg (25.7-33.7); MCHC 33.4 g/dl (32.0-36.0); MEAN CELL VOLUME 74.3 fl (80-96); MEAN PLT VOLUME 9.9 fl (7.5-11.1); PLATELET COUNT 229 10^3/uL (134-434); RBC 3.44 M/mm3 (3.60-5.2); RDW 18.8 % (11.6-15.6); WHITE BLOOD COUNT 7.7 K/mm3 (4.0-10.0)
[2021-04-04] MEDS: FERROUS SO4 325 MG TABLET (FP) PO SCH (08:23)
[2021-04-04] MEDS: PRENATAL VITAMINS W/ FOLIC ACID TABLET (FP) PO SCH (09:00)
[2021-04-04 10:38] VITALS: BP 103/61; TEMP 98.6
== END 2021-04-04 13:05 | disposition home or self-care (01) | DRG 807 ==
LOC: JLDR 09:32 → J3W 15:05
PROVIDERS: ADMIT Obstetrics & Gynecology; ATTEND Obstetrics & Gynecology
PROC: 10E0XZZ Delivery of Products of Conception, External Approach (ICD-10-PCS; principal; 2021-04-02)
PROC: 0W8NXZZ Division of Female Perineum, External Approach (ICD-10-PCS; 2021-04-02)
PROC: 30233N1 Transfusion of Nonautologous Red Blood Cells into Peripheral Vein, Percutaneous Approach (ICD-10-PCS; 2021-04-03)
DX: O99.02 Anemia complicating childbirth (principal); Z37.0 Single live birth; D64.89 Other specified anemias; Z3A.39 39 weeks gestation of pregnancy
CPT/HCPCS: 36415; 36430; 36511; 36600; 59409; 80048; 82803; 85025; 85027; 85610; 85730; 86780; 86850; 86900; 86901; 86922; 87389; 90715; C9803; P9038; P9058; U0003; U0005

== ENCOUNTER 2021-09-09 09:15 | Emergency (ER) | payer BC, OTHER ==
[2021-09-09 09:25] VITALS: BP 99/64; PULSE 78; TEMP 97.5; BMI 27.1
[2021-09-09 10:55] LABS: BASO % 0.5 % (0-2.0); EOS % 0.6 % (0-4.5); HEMATOCRIT 27.1 % (32.4-45.2); HEMOGLOBIN 8.5 GM/dL (10.7-15.3); LYMPH % 29.1 % (8-40); MCH 21.9 pg (25.7-33.7); MCHC 31.4 g/dl (32.0-36.0); MEAN CELL VOLUME 69.9 fl (80-96); MEAN PLT VOLUME 8.9 fl (7.5-11.1); MONO % 6.5 % (3.8-10.2); NEUT % 63.3 % (42.8-82.8); PLATELET COUNT 281 10^3/uL (134-434); RBC 3.87 M/mm3 (3.60-5.2); RDW 17.2 % (11.6-15.6); WHITE BLOOD COUNT 5.1 K/mm3 (4.0-10.0)
[2021-09-09 11:18] LABS: CALCIUM 8.7 mg/dL (8.5-10.1)
[2021-09-09 11:19] LABS: ALBUMIN 3.4 g/dl (3.4-5.0); BLOOD UREA NITROGEN 5.4 mg/dL (7-18)
[2021-09-09 11:22] LABS: CREATININE 0.6 mg/dL (0.55-1.3)
[2021-09-09 11:23] LABS: BILIRUBIN,TOTAL 0.3 mg/dL (0.2-1); TOT PROT 6.6 g/dl (6.4-8.2)
[2021-09-09 11:36] LABS: ANISOCYTOSIS 2+; MACROCYTOSIS 0; OVALOCYTE 1+; PLATELET ESTIMATE NORMAL; TARGET CELLS 1+
== END 2021-09-09 12:07 | disposition home or self-care (01) ==
LOC: JER 09:15
DX: H53.8 Other visual disturbances (principal); G37.9 Demyelinating disease of central nervous system, unspecified
CPT/HCPCS: 36415; 70450-TC; 80053; 84703; 85025; 99284-25

== ENCOUNTER 2021-09-10 04:02 | Day surgery (SDC) | payer BC, OTHER ==
[2021-09-08 14:44] VITALS: BMI 27.3
[2021-09-10 09:15] LABS: BASO % 0.6 % (0-2.0); EOS % 0.5 % (0-4.5); HEMATOCRIT 27.3 % (32.4-45.2); HEMOGLOBIN 8.9 GM/dL (10.7-15.3); MCH 22.5 pg (25.7-33.7); MCHC 32.6 g/dl (32.0-36.0); MEAN CELL VOLUME 69.2 fl (80-96); MEAN PLT VOLUME 8.8 fl (7.5-11.1); MONO % 5.8 % (3.8-10.2); NEUT % 67.1 % (42.8-82.8); PLATELET COUNT 315 10^3/uL (134-434); RBC 3.95 M/mm3 (3.60-5.2); RDW 17.7 % (11.6-15.6); WHITE BLOOD COUNT 5.5 K/mm3 (4.0-10.0)
[2021-09-10 09:22] LABS: INR 1.11 (0.83-1.09)
[2021-09-10 14:16] VITALS: BP 100/64; PULSE 65; TEMP 97.4
[2021-09-10 15:08] LABS: CSF APPEARANCE CLEAR (CLEAR); CSF COLOR COLORLESS (COLORLESS); CSF WBC 8 mm3 (0-5)
[2021-09-10 15:16] LABS: BF GLUCOSE (CSF ONLY) 50 mg/dL (40-70)
== END 2021-09-10 14:25 | disposition home or self-care (01) ==
LOC: JRADIR 04:02
PROVIDERS: ATTEND Psychiatry & Neurology Neurology
PROC: 009U3ZX Drainage of Spinal Canal, Percutaneous Approach, Diagnostic (ICD-10-PCS; principal; 2021-09-10)
DX: G35 Multiple sclerosis (principal)
CPT/HCPCS: 36415; 62272; 82784; 82787; 82945; 83873; 83916; 84157; 84703; 85025; 85610; 87899

== ENCOUNTER 2022-03-23 11:40 | Emergency (ER) | payer BC, OTHER ==
[2022-03-23 12:07] VITALS: PULSE 96; TEMP 98.5; BMI 27.4
[2022-03-23] MEDS ORDERED: FAMOTIDINE 20 MG TABLET PO ONE (13:09)
[2022-03-23] MEDS ORDERED: ACETAMINOPHEN 500 MG TABLET (FP) PO ONE (13:09)
[2022-03-23] MEDS ORDERED: MAG HYDROX/AL HYDROX/SIMETH -MYLANTA- ORAL SUSPENSION PO ONE (13:09)
[2022-03-23] MEDS ORDERED: SODIUM CHLORIDE 1,000 ML IV STA (13:09)
[2022-03-23 13:26] LABS: HEMATOCRIT 28.8 % (32.4-45.2); HEMOGLOBIN 9.1 GM/dL (10.7-15.3); MCH 22.3 pg (25.7-33.7); MCHC 31.5 g/dl (32.0-36.0); MEAN CELL VOLUME 70.7 fl (80-96); PLATELET COUNT 247 10^3/uL (134-434); RBC 4.08 M/mm3 (3.60-5.2); RDW 25.2 % (11.6-15.6); WHITE BLOOD COUNT 3.9 K/mm3 (4.0-10.0)
[2022-03-23] MEDS ORDERED: MAG HYDROX/AL HYDROX/SIMETH 30 ML UNIT-DOSE CUP ONE (13:31)
[2022-03-23] MEDS ORDERED: FAMOTIDINE 20 MG TABLET ONE (13:31)
[2022-03-23] MEDS ORDERED: ACETAMINOPHEN 500 MG TABLET (FP) ONE (13:33)
[2022-03-23 13:37] LABS: CALCIUM 8.6 mg/dL (8.5-10.1)
[2022-03-23 13:38] LABS: ALBUMIN 3.4 g/dl (3.4-5.0); BLOOD UREA NITROGEN 5.4 mg/dL (7-18)
[2022-03-23 13:41] LABS: CREATININE 0.6 mg/dL (0.55-1.3)
[2022-03-23 13:42] LABS: BILIRUBIN,TOTAL 0.3 mg/dL (0.2-1); TOT PROT 6.6 g/dl (6.4-8.2)
[2022-03-23 14:16] VITALS: BP 100/70
[2022-03-23] MEDS ORDERED: BEBTELOVIMAB (EUA) 175 MG/2 ML VIAL IVPUSH ONE (15:27)
[2022-03-23] MEDS ORDERED: ALBUTEROL SO4 HFA INHALER IH ONE ×2 (16:16→16:28)
[2022-03-23 16:47] LABS: EPI CELLS 20 /uL (0-25.1); HYALINE CASTS 1 /uL (0-3.1); PH,URINE 5.5 (5.0-8.0); URINE APPEARANCE CLEAR; URINE BACTERIA 450 /uL (0-1359); URINE BILIRUBIN NEGATIVE (NEGATIVE); URINE COLOR YELLOW; URINE GLUCOSE (UA) NEGATIVE (NEGATIVE); URINE KETONE TRACE (NEGATIVE); URINE LEUK ESTERASE 1+ (NEGATIVE); URINE NITRITE NEGATIVE (NEGATIVE); URINE PROTEIN NEGATIVE (NEGATIVE); URINE RBC 6 /uL (0-23.9); URINE WBC 43 /uL (0-25.8)
== END 2022-03-23 19:40 | disposition home or self-care (01) ==
LOC: JER 11:40
PROC: 3E03329 Introduction of Other Anti-infective into Peripheral Vein, Percutaneous Approach (ICD-10-PCS; principal; 2022-03-23)
PROC: 3E0337Z Introduction of Electrolytic and Water Balance Substance into Peripheral Vein, Percutaneous Approach (ICD-10-PCS; 2022-03-23)
DX: U07.1 COVID-19 (principal)
CPT/HCPCS: 0241U-QW; 36415; 71045-TC-FY; 76705-TC; 80053; 81003; 83690; 84703; 85027; 87077; 87086; 96361; 96374; 99284-25; M0222; Q0222